=== PATIENT | female | born 1975 | race Caucasian/White ===

== ENCOUNTER 2022-08-10 17:09 | Outpatient (REF) | payer OTHER, SELFPAY ==
--- NOTE | ~2022-08-10 | XR_ITS ---
EXAMINATION: XR FOOT, RIGHT CLINICAL INFORMATION: Pain COMPARISON: None available. TECHNIQUE: AP, lateral, and oblique views of the right foot. FINDINGS: Bone alignment is normal. No fracture or dislocation. Mild arthritis at the first MTP joint with small osteophytes. Joint spaces are otherwise normal. Small calcaneal spur at the Achilles tendon insertion. XR/XR foot RT 2V IMPRESSION: Mild arthritis at the first MTP joint. Small calcaneal spur.
== END 2022-08-10 17:10 | disposition home or self-care (01) ==
LOC: HO.XRAY 17:09
PROVIDERS: Visit Provider Nurse Practitioner Family
DX: M79.671 Pain in right foot (principal)
CPT/HCPCS: 73620

== ENCOUNTER 2023-03-12 09:48 | Outpatient (AMB) | payer OTHER, SELFPAY ==
[2023-03-12 10:01] VITALS: BP 118/62; PULSE 72; O2SAT 99; BMI 23.7
--- NOTE | 2023-03-12 10:01 | MHC.PC.OV ---
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 Allergies No Known Allergies Allergy (Verified 03/12/23 10:10) Tobacco use date assessed: 03/12/23 HPI trans care from [facility] Details Transfer of Care Prior PCP:?SV Acute issue(s): Moderately severe environmental allergies - Fluctuate w/ seasons. Rhinitis & Sinusitis symptoms. Uses Benadryl. Cysts: ?Axilla?and?toe PMHx: Denies SurgHx: , [place] tooth FHx: Mom: [place]otos Thyroid, Macular degen. Dad: Melanoma SocHx: Nonsmoker. EtOH 1-1 glasses wine per week. No drugs. PFSH Surgical History No pertinent past surgical history Family History Father Melanoma Mother No problems noted. 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 Cognitive needs: No Hearing needs: No Vision needs: No Review of Systems Const Denies chills, Denies fatigue, Denies fever(s), Denies headache(s) and Denies weakness ENT Denies dizziness, Denies headache(s) and Reports nasal congestion Card Denies chest pain, Denies lightheadedness, Denies dyspnea and Denies other (Palpitations) Resp Denies cough, Denies dyspnea, Denies wheezing and Denies other ( shortness of breath) Musc Denies numbness and Denies tingling Neuro Denies dizziness, Denies headache(s), Denies numbness, Denies tingling, Denies paresthesias and Denies weakness Psych Denies anxiety and Denies depression Endo Denies fatigue Aller/Immun Denies wheezing Physical exam (Primary Care) Vital Signs: Last Vital Signs Pulse 72 03/12/23 10:01 BP 118/62 03/12/23 10:01 Pulse Ox 99 03/12/23 10:01 Oxygen Delivery Method Room Air 03/12/23 10:01 BMI result Body Mass Index 23.7 Tobacco/Smoking Status: Tobacco use Status Tobacco use date assessed 03/12/23 03/12/23 10:16 Patient Tobacco Use Status Never used Tobacco 03/12/23 10:16 e-Cigarette/Vaping Use Never Used 03/12/23 10:16 Const General: no acute distress and well developed Nutritional Appearance: well nourished Orientation/consciousness: patient oriented x3 HENMT Head: Yes normocephalic and Yes atraumatic Eyes General: appearance normal, both eyes and all related structures Pupils: Equal, round and reactive pupils present EOM: EOMs intact bilaterally Resp Effort & Inspection: normal respiratory effort Auscultation: clear to auscultation bilaterally Cardio Rate: regular rate Rhythm: regular rhythm Heart sounds: S1 normal heart sound present, S2 normal heart sound present, no gallops, no murmurs and no rubs Neuro General: patient oriented x3 and gait normal Cranial nerves: Yes Equal, round and reactive pupils present Psych Affect: normal affect Assessment and Plan Assessment & Plan (1) Environmental allergies: Code(s): Z91.09 - Other allergy status, other than to drugs and biological substances Plan: Discussed?environmental?modifications Will?trial?Flonase?and?she?can?continue?antihistamines Referred?to?immunology?at?patient?request (2) Allergic rhinitis: Code(s): J30.9 - Allergic rhinitis, unspecified Plan: As?above (3) Hidradenitis: Code(s): L73.2 - Hidradenitis suppurativa Plan: Follicular?cysts?under?left?axilla?and?right?toe Likely?hidradenitis Referred?to?surgery (4) Laboratory exam ordered as part of routine general medical examination: Code(s): Z00.00 - Encounter for general adult medical examination without abnormal findings Plan: Check?labs Orders: Referrals Allergy & Immunology Referral J30.9 - Allergic rhinitis, unspecified, Z91.09 - Other allergy status, other than to drugs and biological substances General Surgery Referral L73.2 - Hidradenitis suppurativa Medications: New fluticasone propionate 50 mcg/actuation (Flonase Allergy Relief) administer into each nostril 1 spray intranasal Q12H 30 days 16 grams 2RF Coding Level of Care Code Est Pt Level 3 (40302) Diagnoses Environmental allergies Z91.09 Allergic rhinitis J30.9 Hidradenitis L73.2 Laboratory exam ordered as part of routine general medical examination Z00.00
== END 2023-03-12 11:20 | disposition home or self-care (01) ==
PROVIDERS: PCP Family Medicine; Visit Provider Family Medicine
DX: Z91.09 Other allergy status, other than to drugs and biological substances (principal); J30.9 Allergic rhinitis, unspecified; L73.2 Hidradenitis suppurativa; Z00.00 Encounter for general adult medical examination without abnormal findings
CPT/HCPCS: 99213

== ENCOUNTER 2023-03-24 14:41 | Outpatient (REF) | payer OTHER, SELFPAY | END 2023-03-24 14:42 | disposition home or self-care (01) | LOC: HO.LNP 14:41 | PROVIDERS: PCP Family Medicine; Visit Provider Surgery | DX: L72.0 Epidermal cyst (principal) | CPT/HCPCS: 11402; 88304; 88305; 99202 ==

== ENCOUNTER 2023-03-24 14:41 | Outpatient (AMB) | payer OTHER, SELFPAY ==
[2023-03-24 14:44] VITALS: BMI 48.1
--- NOTE | 2023-03-24 14:44 | MHC.OFFVIS ---
Intake Vital Signs 03/24/23 14:44 Height 5 ft 10 in Weight 335 lb BMI 48.1 Intake Visit Reasons: hidradenitis suppurativa Intake Note: This patient presents for an assessment for hidradenitis suppurativa. Patient c/o; reports no complaints at this time. 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 She had noticed this since he to 4 years ago. She says she did not pay much attention to this because of the pandemic She says that this has been bothering her more and she wants this removed. She denies any drainage. [facility] Medical History (Updated 03/24/23 @ 15:24 by Elias Coombs MD) Epidermal inclusion cyst Surgical History No pertinent past surgical history Family History Father Melanoma Mother No problems noted. 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 Cognitive needs: No Hearing needs: No Vision needs: No Review of Systems Const Denies chills and Denies fever(s) Card Denies chest pain, Denies dyspnea and Denies dyspnea on exertion Resp Denies cough, Denies dyspnea and Denies dyspnea on exertion GI Denies hematochezia and Denies change in bowel habits Denies hematuria Musc Denies back pain and Denies limited range of motion Neuro Denies focal weakness and Denies convulsions Psych Denies depression and Denies mood swings Physical Exam Vital Signs: BMI result Body Mass Index 48.1 Const General: comfortable and no acute distress Orientation/consciousness: patient oriented x3 Neck Neck: Yes no lymphadenopathy Resp Auscultation: clear to auscultation bilaterally Cardio Rhythm: regular rhythm GI Palpation (GI): Soft to palpation, nontender and no guarding Neuro General: patient oriented x3 Extrem Other: Left axilla - well-defined mobile cystic mass, about 2 cm, with punctum on the skin consistent with an epidermal inclusion cyst Office Procedures Excision Details: The area was prepped and draped. Lidocaine 1% was used for local anesthesia. An elliptical incision was made on the skin overlying this cyst using a blade 15. This was carried down through the full-thickness of the skin and subcutaneous fat to excise this entire cyst. This has well-defined. This measured about 2 cm in diameter. I closed the incision with full-thickness nylon 3-0 interrupted sutures. Dressings were applied. The procedure was completed. She tolerated procedure well. There were no immediate complications. She was given wound care instructions. 71204-uqdob/arms/legs 1.1-2cm Procedure code (CPT) selection complete Assessment & Plan Assessment & Plan (1) Epidermal inclusion cyst: Code(s): L72.0 - Epidermal cyst Plan: She has an epidermal inclusion cyst of the left axilla. She wants this removed. I explained the technique of excision under local anesthesia. I explained the risks including but not limited to bleeding, infections, as well as the benefits and alternatives. She gave consent Excision was done in the office. She tolerated procedure well. There were no immediate complications. She can take Tylenol and ibuprofen for pain. She can get the incision wet after 24 hours and she can change her dressing to Band-Aids thereafter. I will see her in the office in about 2 weeks remove the sutures. Coding Level of Care Code New Pt Level 3 (95141) Diagnoses Epidermal inclusion cyst L72.0 CPT Codes Trunk/Arms/Legs - CPT: 25563-cynci/arms/legs 1.1-2cm ([id number])
== END 2023-03-24 15:28 | disposition home or self-care (01) ==
PROVIDERS: PCP Family Medicine; Visit Provider Surgery
DX: L72.0 Epidermal cyst (principal)
CPT/HCPCS: 11402; 99203

== ENCOUNTER 2023-04-07 13:22 | Outpatient (AMB) | payer OTHER, SELFPAY ==
[2023-04-07 13:24] VITALS: BMI 21.7
--- NOTE | 2023-04-07 13:24 | MHC.OFFVIS ---
Intake Vital Signs 04/07/23 13:24 Height 5 ft 10 in Weight 151 lb BMI 21.7 Intake Visit Reasons: S/p Exc hidradenitis suppurativa-in office Intake Note: This patient presents for a post-op follow-up assessment status post in office excision epidermal inclusion cyst left axilla. Pt c/o; reports redness. 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 She tolerated procedure well. She denies significant complaints at this time. [facility] Medical History Epidermal inclusion cyst Surgical History History of excision of epidermal inclusion cyst (~03/24/23) Family History Father Melanoma Mother No problems noted. 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 Cognitive needs: No Hearing needs: No Vision needs: No Review of Systems Const Denies chills and Denies fever(s) Card Denies chest pain, Denies dyspnea and Denies dyspnea on exertion Resp Denies cough, Denies dyspnea and Denies dyspnea on exertion GI Denies hematochezia and Denies change in bowel habits Denies hematuria Musc Denies back pain and Denies limited range of motion Neuro Denies focal weakness and Denies convulsions Psych Denies depression and Denies mood swings Physical Exam Vital Signs: BMI result Body Mass Index 21.7 Const General: comfortable and no acute distress Skin Other: Excision site from the left axilla is well healed, sutures intact, No sign of infection Assessment & Plan Assessment & Plan (1) Epidermal inclusion cyst: Code(s): L72.0 - Epidermal cyst Plan: Status post excision. 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 The incision site is well healed. I removed her sutures. She can follow up on a p.r.n. basis. She understands the benign nature of the pathology. Coding Level of Care Code Global (37135) Diagnoses Epidermal inclusion cyst L72.0
== END 2023-04-07 13:46 | disposition home or self-care (01) ==
PROVIDERS: PCP Family Medicine; Visit Provider Surgery
DX: L72.0 Epidermal cyst (principal)
CPT/HCPCS: 99024

== ENCOUNTER → 2023-04-07 13:22 | Outpatient (BNVA) | payer OTHER, SELFPAY | PROVIDERS: PCP Family Medicine; Visit Provider Surgery | DX: Z09 Encounter for follow-up examination after completed treatment for conditions other than malignant neoplasm (principal); Z87.2 Personal history of diseases of the skin and subcutaneous tissue | CPT/HCPCS: 99212 ==

== ENCOUNTER 2023-04-16 15:21 | Outpatient (REF) | payer OTHER, SELFPAY ==
--- NOTE | ~2023-04-16 | MM_ITS ---
EXAMINATION: MM SCREENING DIGITAL BREAST TOMOSYNTHESIS, BILATERAL CLINICAL INFORMATION: Screening. Asymptomatic. COMPARISON: Mammography: This study is compared with prior mammogram dating back to 2019. TECHNIQUE: Digital breast tomosynthesis is performed in both the craniocaudal and mediolateral oblique views along with computer-aided detection (CAD). Synthesized 2D images are generated from the tomosynthesis. FINDINGS: The breasts are heterogeneously dense, which may obscure small masses (ACR BI-RADS breast composition Category c). There are no significant masses, abnormal calcifications, or other abnormalities. MM/MM tomosynthesis screening BI IMPRESSION: No mammographic evidence of malignancy. ASSESSMENT: BI-RADS BI-RADS 1 - Negative RECOMMENDATION: Routine annual mammography screening. 1 year F/U This examination should not preclude the clinical evaluation of a suspicious palpable abnormality. This patient's information was entered into a reminder system with a target due date for their next mammogram.
== END 2023-04-16 15:22 | disposition home or self-care (01) ==
LOC: HO.MAMMO 15:21
PROVIDERS: Visit Provider Family Medicine
DX: Z12.31 Encounter for screening mammogram for malignant neoplasm of breast (principal)
CPT/HCPCS: 77063; 77067

== ENCOUNTER → 2023-04-16 15:45 | Outpatient (BNV) | payer OTHER, SELFPAY | PROVIDERS: Visit Provider Radiology Diagnostic Radiology | DX: Z12.31 Encounter for screening mammogram for malignant neoplasm of breast (principal) | CPT/HCPCS: 77063; 77067 ==

== ENCOUNTER 2023-07-21 08:39 | Outpatient (AMB) | payer OTHER, SELFPAY ==
--- NOTE | 2023-07-21 08:55 | A.OFFPC_ITS ---
Vital Signs 07/21/23 08:58 Height 5 ft 10 in Weight 170 lb 4 oz BMI 24.4 BP 120/66 Blood Pressure Location Lt brachial Position Sitting Pulse 80 Pulse Source Pulse Oximeter Pulse Oximetry (%) 99 Oxygen Delivery Method Room Air Intake Visit Reasons: Extended exam with f/u labs and health maint. Intake Note: Patient is here for a physical, and had her labs drawn this morning. Allergies No Known Allergies Allergy (Verified 07/21/23 08:59) Medication List - Last Reconciled 07/21/23 by Chepe Hart MD fluticasone propionate 50 mcg/actuation (Flonase Allergy Relief) 1 spray intranasal Q12H 30 days Tobacco use date assessed: 03/12/23 Dental Screening Dental Screen Date: 07/21/23 Did you have a dental visit in the last 12 months?: No Did you have a dental problem in the last 6 months where you did not have access to dental care?: No Was dental information given to patient?: Patient has dentist HPI Extended exam with f/u labs and health maint. HPI Details 47 y/o female presents for an extended e xam with f/u labs and health maintenance. No recent labs to review. Pt notes last mammogram was normal. HPI Comments History of Present Illness Details Documentation assistance for Chepe Hart MD, was provided by Jeremy Mack, Clinical Liaison on 07/21/2023 9:48 AM JOE. Rachel, Dr. Hart, have read, observed, and verified documentation. [facility] Medical History Epidermal inclusion cyst Surgical History History of excision of epidermal inclusion cyst (~03/24/23) Family History Father Melanoma Mother No problems noted. 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 1. Little interest or pleasure in doing things: not at all 2. Feeling down, depressed, or hopeless: not at all 3. Trouble falling or staying asleep, or sleeping too much: not at all 4. Feeling tired or having little energy: not at all 5. Poor appetite or overeating: not at all 6. Feeling bad about yourself - or that you are a failure or have let yourself or your family down: not at all 7. Trouble concentrating on things, such as reading the newspaper or watching television: not at all 8. Moving or speaking so slowly that other people could have noticed. Or the opposite - being so fidgety or restless that you have been moving around a lot more than usual: not at all 9. Thoughts that you would be better off or of hurting yourself in some way: not at all Total score: 0 Depression Screening Interpretation: Negative Depression Screening Done: Yes Source: Developed by Drs. Stuart Kilgore, Gloria Solo, Placido Alvarado and colleagues, with an educational herve from [employer]. Thrive Questionnaire Date Thrive assessed: 07/21/23 I am a: Patient What is your living situation today?: I have a steady place to live Within the past 12 months, did the food you bought not last and you didn't have the money to get more?: Never true Within the past 12 months, did you worry whether your food would run out before you got money to buy more?: Never true Do you have trouble paying for medicines?: No Do you have trouble getting transportation to medical appointments?: No Do you have trouble paying your heating and electricity bill?: No Do you have trouble taking care of your child, family member or friend?: No Do you have trouble with day-to-day activities such as bathing, preparing meals, shopping, managing finances, etc.?: No Are you currently unemployed and looking for a job?: No Are you interested in more education?: No THRIVE Score: 0 AUDIT C Alcohol Use Questionnaire (AUDIT-C) 1. How often do you have a drink containing alcohol?: 2-3 times a week 2. How many drinks containing alcohol do you have on a typical day when you are drinking?: 1 or 2 3. How often do you have six or more drinks on one occasion?: Never Total Score: 3 CORKY-7 AMB Questionnaire CORKY-7 Date CORKY - 7 assessed: 07/21/23 Feeling nervous, anxious, or on edge: 3 = Nearly every day Not being able to stop or control worryin = Nearly every day Worrying too much about different things: 3 = Nearly every day Trouble relaxin = Nearly every day Being so restless that it is hard to sit still: 3 = Nearly every day Becoming easily annoyed or irritable: 3 = Nearly every day Feeling afraid as if something awful might happen: 3 = Nearly every day Total CORKY-7 score (0-4 normal; 5-9 mild; 10-14 moderate; 15-21 severe): 21 Source: Developed by Drs. Stuart Kilgore, Gloria Solo, Placido Alvarado and colleagues, with an educational herve from [employer]. Review of Systems Const Denies chills, Denies fatigue, Denies fever(s), Denies headache(s) and Denies weakness Eyes Denies change in vision ENT Denies dizziness, Denies headache(s), Denies hearing loss, Denies nasal congestion, Denies sinus pain, Denies sinus pressure and Denies sore throat Card Denies chest pain, Denies lightheadedness, Denies dyspnea and Denies other (palpitations) Resp Denies cough, Denies dyspnea and Denies wheezing GI Denies abdominal pain, Denies melena, Denies hematochezia, Denies change in bowel habits, Denies dyspepsia and Denies nausea Denies hematuria and Denies dysuria Musc Denies abnormal gait, Denies myalgias, Denies arthralgias, Denies numbness and Denies tingling Skin/Breast Denies rash, Denies unusual bruising and Denies wounds Neuro Denies abnormal gait, Denies dizziness, Denies headache(s), Denies memory loss, Denies numbness, Denies Sensory deficit (Neuro), Denies tingling and Denies weakness Psych Denies anxiety, Denies depression and Denies memory loss Endo Denies cold intolerance, Denies fatigue, Denies heat intolerance, Denies polydipsia and Denies polyuria Andreas/Lymph Denies easy bleeding and Denies easy bruising Aller/Immun Denies wheezing Physical exam (Primary Care) Vital Signs: Last Vital Signs Pulse 80 07/21/23 08:58 BP 120/66 07/21/23 08:58 Pulse Ox 99 07/21/23 08:58 Oxygen Delivery Method Room Air 07/21/23 08:58 BMI result Body Mass Index 24.4 Tobacco/Smoking Status: Tobacco use Status Tobacco use date assessed 03/12/23 07/21/23 08:57 Patient Tobacco Use Status Never used Tobacco 07/21/23 08:57 e-Cigarette/Vaping Use Never Used 07/21/23 08:57 PHQ-9: PHQ-9 Score PHQ-9: Total score 0 07/21/23 09:06 Depression Screening Interpretation: Negative Thrive Assessment: Date of Thrive Assessment Date Thrive assessed 07/21/23 07/21/23 09:06 Const General: no acute distress, well developed, alert and awake Nutritional Appearance: well nourished Orientation/consciousness: patient oriented x3 HENMT Head: Yes normocephalic and Yes atraumatic Ears: hearing grossly normal bilaterally and TM's normal bilaterally General nose exam: Normal external nose present and Normal nares present Mouth: Normal oral and palatal mucosa present and moist mucous membranes Teeth and gingiva: dentition normal Throat: Yes posterior oropharynx normal Eyes General: appearance normal, both eyes and all related structures Pupils: Equal, round and reactive pupils present and Pupil accommodation reflex normal EOM: EOMs intact bilaterally Neck Neck: Yes normal visual inspection, Yes no lymphadenopathy and Yes trachea midline Thyroid: Thyroid normal Carotids: no bruits Lymphatic: no lymphadenopathy noted Chest Chest palpation & inspection: normal inspection of the chest Resp Effort & Inspection: normal respiratory effort Auscultation: clear to auscultation bilaterally Cardio Rate: regular rate Rhythm: regular rhythm Heart sounds: S1 normal heart sound present, S2 normal heart sound present, no gallops, no murmurs and no rubs Bruits: no abdominal aortic bruits and no carotid bruits GI Palpation (GI): No Abdominal aortic bruit present, Soft to palpation, nontender, No hepatosplenomegaly present and No Rebound tenderness present Auscultation: normal bowel sounds General: Yes no CVA tenderness Back/Spine/Pelvis Back: no CVA tenderness Cervical Spine: cervical ROM normal and No Cervical spine tenderness Thoracic/Lumbar Spine: thoraco-lumbar ROM normal, No pain with thoraco-lumbar ROM, No thoracic spinal tenderness and No lumbar spinal tenderness Skin Other: 0.5cm rounded neoplasm between her eyebrows on the bridge of her nose Lesions: no lesions Rashes: no rashes Trauma: no lacerations or abrasions Wounds: no wounds Nails: normal Neuro General: patient oriented x3 Cranial nerves: Yes Equal, round and reactive pupils present Cognition (Neuro): normal cognition Gait exam (Neuro): Normal gait present Motor exam (neuro): 5/5 motor strength present throughout Sensory Exam: No Sensory deficit (Neuro) Deep tendon reflexes (DTR's): Right patellar reflex intensity grade: 2+ and Left patellar reflex intensity grade: 2+ Extrem Other: Cyst on R third toe which looks fluctuant General: Yes normal to inspection and No edema Psych Appearance: grossly normal Affect: normal affect Attitude: cooperative Thought process: Normal thought process present Assessment and Plan Assessment & Plan (1) Neoplasm of uncertain behavior of skin: Code(s): D48.5 - Neoplasm of uncertain behavior of skin Plan: Rounded?neoplasm?at?superior?aspect?of?the?bridge?of?her?nose Referred?to?dermatology (2) Cyst of skin: Code(s): L72.9 - Follicular cyst of the skin and subcutaneous tissue, unspecified Plan: Cyst?or?blister?on?right?3rd?toe?which?gets?irritated?when?she?runs. Appears?fluctuant?and?we?will?try?Sarita?this Advised?mole?skin?or??Donnie's?bandages?until?then. If?not?improving?will?refer?to?Podiatry (3) Breast cancer screening by mammogram: Code(s): Z12.31 - Encounter for screening mammogram for malignant neoplasm of breast Plan: Recent?mammogram?in?April?showed?no?evidence?of?malignancies?and?recommended? annual?screening Up-to-date (4) Screening for cervical cancer: Code(s): Z12.4 - Encounter for screening for malignant neoplasm of cervix Plan: Patient?says?she?had?her?last?Pap?smear?about?2?years?ago?with?[facility]?an d?that?this?was?normal. Will?discuss?with?her?again?next?year;?she?says?she?would?like?a?referral?to?[facility] Will?discuss?again?next?year.??She?is?up-to-date. (5) Adult general medical exam: Code(s): Z00.00 - Encounter for general adult medical examination without abnormal findings Plan: 47-year-old?female?presents?for?complete?physical?exam Encouraged?healthy?diet?with?active?lifestyle?and?plenty?of?exercise Orders: Referrals Dermatology Referral D48.5 - Neoplasm of uncertain behavior of skin Coding Level of Care Code Est Pt Level 4 (98562) Diagnoses Neoplasm of uncertain behavior of skin D48.5 Cyst of skin L72.9 Breast cancer screening by mammogram Z12.31 Screening for cervical cancer Z12.4 Adult general medical exam Z00.00
[2023-07-21 08:58] VITALS: BP 120/66; PULSE 80; O2SAT 99; BMI 24.4
== END 2023-07-21 10:01 | disposition home or self-care (01) ==
PROVIDERS: PCP Family Medicine; Visit Provider Family Medicine
DX: Z00.00 Encounter for general adult medical examination without abnormal findings (principal); D48.5 Neoplasm of uncertain behavior of skin; L72.9 Follicular cyst of the skin and subcutaneous tissue, unspecified; Z12.31 Encounter for screening mammogram for malignant neoplasm of breast
CPT/HCPCS: 99396

== ENCOUNTER 2023-07-21 08:47 | Outpatient (REF) | payer OTHER, SELFPAY ==
[2023-07-21 11:39] LABS: Appearance Urine Clear; Color Urine Yellow; Glucose Urine UA Negative (Negative); Leukocyte Esterase Urine Negative (Negative); Nitrite Urine Negative (Negative); Specific Gravity - Urine <= 1.005 (1.005-1.025); Urine Blood Negative (Negative); Urine Ketones Negative (Negative); Urine Protein Negative (Neg-Trace)
[2023-07-21 12:02] LABS: Alanine Aminotransferase 10 U/L (0-31); Albumin Level 4.3 g/dL (3.5-5.0); Alkaline Phosphatase 48 U/L (39-117); Anion Gap 10 (12-20); Aspartate Amino Transferase 15 U/L (5-31); Bilirubin Total 0.4 mg/dL (0.0-1.0); Blood Urea Nitrogen 13 mg/dL (9-16); Calcium 9.6 mg/dL (8.4-10.2); Carbon Dioxide 27 mmol/L (22-29); Chloride 104 mmol/L (96-108); Cholesterol 240 mg/dL (<200); Estimated Glomerular Filt Rate > 60; Glucose Fasting 91 mg/dL (60-99); HDL Cholesterol 73 mg/dL (>40); LDL Cholesterol Calculated 151 mg/dL (<100); Potassium 4.3 mmol/L (3.3-5.1); Sodium 137 mmol/L (135-145); Total Protein 7.1 g/dL (6.5-8.0); Triglycerides 81 mg/dL (<150)
[2023-07-21 12:17] LABS: Creatinine Urine 24.35 mg/dL; Microalbumin Urine < 5.0 mg/L
[2023-07-21 12:24] LABS: TSH reflex Free T4 1.23 uIU/mL (0.32-4.0)
== END 2023-07-21 08:48 | disposition home or self-care (01) ==
LOC: HO.WFDLDS 08:47
PROVIDERS: Visit Provider Family Medicine
DX: Z00.00 Encounter for general adult medical examination without abnormal findings (principal); I10 Essential (primary) hypertension
CPT/HCPCS: 36415; 80053; 80061; 81003; 82043; 82570; 84443

== ENCOUNTER 2024-06-22 12:30 | Outpatient (REF) | payer OTHER, SELFPAY | END 2024-06-22 12:31 | disposition home or self-care (01) | LOC: HO.MAMMO 12:30 | PROVIDERS: PCP Family Medicine; Visit Provider Family Medicine | DX: Z12.31 Encounter for screening mammogram for malignant neoplasm of breast (principal) | CPT/HCPCS: 77063; 77067 ==

== ENCOUNTER → 2024-06-22 12:30 | Outpatient (BNV) | payer OTHER, SELFPAY | PROVIDERS: PCP Family Medicine; Visit Provider Internal Medicine | DX: Z12.31 Encounter for screening mammogram for malignant neoplasm of breast (principal) | CPT/HCPCS: 77063; 77067 ==

== ENCOUNTER 2024-11-13 15:06 | Outpatient (AMB) | payer OTHER, SELFPAY ==
--- NOTE | 2024-11-13 15:10 | A.OFFPC_ITS ---
Vital Signs 3 11/13/24 15:14 11/13/24 15:40 Height 5 ft 10 in Weight 166 lb 6 oz BMI 23.9 BP 136/72 Blood Pressure Location Rt brachial Position Sitting Respiration 13 Pulse 103 H 90 Pulse Source Pulse Oximeter Auscultation Temp 97.2 F Temp Source Oral Pulse Oximetry (%) 98 Oxygen Delivery Method Room Air Intake Visit Reasons: Physical Dr. Minda Jain Intake Note: CPE. [place] Required: No Allergies No Known Allergies Allergy (Verified 11/13/24 15:11) Tobacco use date assessed: 11/13/24 Dental Screening Dental Screen Date: 11/13/24 Did you have a dental visit in the last 12 months?: Yes Did you have a dental problem in the last 6 months where you did not have access to dental care?: No Was dental information given to patient?: Patient has dentist HPI HPI Comments 2 History of Present Illness0 Details 49 y/o F with fhx melanoma (dad), HLD, a llergic rhinitis Health Maintenance Mammo 06/2024 Tdap will admin today Colon cologaurd ordered, has never had colonoscopy Pap 2021 [facility] 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 - Hyperlipidemia with previously elevate d cholesterol levels noted. - Managed allergic rhinitis using Flonas e and Claritin as needed. - Needs updated Derm referral for mole e xamination due to family history of melanoma. Was not able to attend last appt [facility]. - Interested in hormone replacement ther apy for perimenopause symptoms; no prior treatment. - Reports recurring inflammatory and dis charging cyst on the toe, middle, R foot. - Chose Cologuard for colon cancer scree jace; has never had a colonoscopy. - Underwent mammogram in June. - No recent surgeries; episodic right le g swelling occasional noted. Family History - Father with a history of melanoma Social History - Patient has 4 children. - Reports lifestyle changes with stresso rs influencing current health due to previous healthcare coordination and treatment gaps. Review of Systems - Skin: Reports concerns about mole and recurring toe cyst. - Reproductive: Denies having a Pap or p erimenopausal management recently. - Musculoskeletal: Reports a history of leg swelling with occasional indentation. - Cardiovascular: Denies recent cardiova scular events but reports past elevated cholesterol. - Respiratory: Denies unusual respirator y symptoms beyond chronic allergic rhinitis. Physical Exam: examined in seated position, here w/ Son Franky, whom she held during the exam for comfort. General: Well developed, well nourished, in no acute distress. Appears stated age. Head: Normocephalic, atraumatic. Eyes: Pupils are equal, round and reactive to light and accommodation. Conjunctivae are clear. Vision grossly normal. Ears: TMs clear AU, EACS WNL Nose: Patent, without discharge. Patient has allergic rhinitis and uses Flonase or Claritin as needed. Neck: Supple, no adenopathy or thyromegaly. No pain or tenderness noted. Breast: Edu on SBE Lungs: Clear to auscultation bilaterally. No rales, rhonchi or wheeze noted. Good air flow in all garcia. Heart: Regular rate and rhythm. No murmurs, click, rubs or gallops are noted. Heart rate was a little bit elevated upon arrival. : Deferred. 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 Pulses: Peripheral pulses are equal and palpable bilaterally. Extremities: No clubbing, cyanosis nor edema is noted. Neurologic: Gait and station normal. Cranial Nerves 2-12 intact. Motor strength grossly symmetrical and intact. No sensory loss. Balance normal. Skin: No rashes, ulcers, or lesions noted. Turgor is good. Skin color is good. Hair and nails are without abnormalities. Skin lesion bridge of nose, L cheek. Psych: Normal eye contact, affect and mood appropriate, and normal interactions. Patient is alert and appropriate to context. right middle toe: Results - Labs: Past records show elevated jana sterol. Declined repeat. - Tests: Mammogram done in June. Discussion Notes During the visit, I addressed the patient's concerns, which included evaluating the recurrent cyst on the toe with potential dermatologic or surgical intervention. I discussed hormone replacement therapy while acknowledging her previous encounter with reluctance to prescribe it; therefore, a referral for comprehensive CONFIGURATION ENGINEER evaluation was provided. The prospect of skin surveillance was confirmed, considering her family history of melanoma. Preventive health discussions included the importance of updating the tetanus vaccine and proceeding with a Cologuard test for colorectal screening. I explained the general surgery referral process for her cyst concerns and effective symptom management strategies through lifestyle and possible medical treatment advancements. Patient was given time to ask questions. All questions were answered to their satisfaction. Assessment and Plan 1. Hyperlipidemia - Monitor cholesterol levels. Declined repeat labs today 2. Allergic Rhinitis - Continue Flonase, Claritin. 3. Cyst on Toe, R middle - Evaluate by general surgery. 4. Perimenopausal Symptoms - Refer for hormone therapy evaluation. 5. Dermatologic Concerns - Prioritize mole check with dermatology . Patient Instructions - Follow up with general surgery regardi ng the cyst. - Schedule CONFIGURATION ENGINEER visit for hormone ther apy advice. - Await dermatology referral. - Complete Cologuard test at home. - Seek tetanus vaccine update as soon as possible. - RTO 1 year CPE sooner as needed. Consent Patient was informed and verbally consented to the use of an ambient scribe for clinic note documentation during this visit. An additional 10 minutes was spent addressing the problem(s) noted at todays visit. This includes time spent before the visit reviewing the chart, time spent during the visit, and time spent after the visit on documentation reviewing laboratory results, diagnostic imaging, medications, performing a medically necessary evaluation, counseling on diagnoses, care coordination, ordering appropriate tests, ordering appropriate medications, review of tests performed by other providers, reporting test results with the patient, communication with other healthcare providers. [facility] Medical History Epidermal inclusion cyst Surgical History History of excision of epidermal inclusion cyst (~03/24/23) Family History Father Melanoma Mother No problems noted. Brother In good health Brother In good health Son In good health Daughter In good health Family/Other Alcoholism Depression Social History Housing: House Patient Tobacco Use Status: Never used Tobacco e-Cigarette/Vaping Use: Never Used service: No Current occupational status: employed Current occupation: [employer] Cognitive needs: No Hearing needs: No Vision needs: No Questionnaire PHQ-9 Over the last 2 weeks, how often have you been bothered by any of the following problems? 1. Little interest or pleasure in doing things: not at all 2. Feeling down, depressed, or hopeless: not at all 3. Trouble falling or staying asleep, or sleeping too much: not at all 4. Feeling tired or having little energy: not at all 5. Poor appetite or overeating: not at all 6. Feeling bad about yourself - or that you are a failure or have let yourself or your family down: not at all 7. Trouble concentrating on things, such as reading the newspaper or watching television: not at all 8. Moving or speaking so slowly that other people could have noticed. Or the opposite - being so fidgety or restless that you have been moving around a lot more than usual: not at all 9. Thoughts that you would be better off or of hurting yourself in some way: not at all Total score: 0 Depression Screening Interpretation: Negative Depression Screening Done: Yes 93048 - PHQ-9 Billing: Yes Source: Developed by Drs. Stuart Kilgore, Gloria Solo, Placido Alvarado and colleagues, with an educational herve from [employer]. Thrive Questionnaire Date Thrive assessed: 11/13/24 I am a: Patient What is your living situation today?: I have a steady place to live Within the past 12 months, did the food you bought not last and you didn't have the money to get more?: Never true Within the past 12 months, did you worry whether your food would run out before you got money to buy more?: Never true Do you have trouble paying for medicines?: No Do you have trouble getting transportation to medical appointments?: No Do you have trouble paying your heating and electricity bill?: No Do you have trouble taking care of your child, family member or friend?: No Are you currently unemployed and looking for a job?: No Are you interested in more education?: No Please select the resources that you would like help with: None Currently or been in a relationship where the following occur: No concerns reported THRIVE Score: 0 AUDIT C Alcohol Use Questionnaire (AUDIT-C) 1. How often do you have a drink containing alcohol?: Never 2. How many drinks containing alcohol do you have on a typical day when you are drinking?: 1 or 2 3. How often do you have six or more drinks on one occasion?: Never Total Score: 0 Score Reviewed/Action Taken: Yes CORKY-7 AMB Questionnaire CORKY-7 Date CORKY - 7 assessed: 11/13/24 Feeling nervous, anxious, or on edge: 0 = Not at all Not being able to stop or control worryin = Not at all Worrying too much about different things: 0 = Not at all Trouble relaxin = Not at all Being so restless that it is hard to sit still: 0 = Not at all Becoming easily annoyed or irritable: 0 = Not at all Feeling afraid as if something awful might happen: 0 = Not at all Total CORKY-7 score (0-4 normal; 5-9 mild; 10-14 moderate; 15-21 severe): 0 Source: Developed by Drs. Stuart Kilgore, Gloria Solo, Placido Alvarado and colleagues, with an educational herve from [employer]. CORKY-7 Assessment Billing CORKY-7 Assessment Tool: CORKY-7 Assessment 70671 Physical exam (Primary Care) Vital Signs: Last Vital Signs Temp 97.2 F 11/13/24 15:14 Pulse 103 H 11/13/24 15:14 Resp 13 11/13/24 15:14 BP 136/72 11/13/24 15:14 Pulse Ox 98 11/13/24 15:14 Oxygen Delivery Method Room Air 11/13/24 15:14 BMI result Body Mass Index 23.9 Tobacco/Smoking Status: Tobacco use Status Tobacco use date assessed 11/13/24 11/13/24 15:13 Patient Tobacco Use Status Never used Tobacco 11/13/24 15:13 e-Cigarette/Vaping Use Never Used 11/13/24 15:13 PHQ-9: PHQ-9 Score PHQ-9: Total score 0 11/13/24 15:13 Depression Screening Interpretation: Negative Thrive Assessment: Date of Thrive Assessment Date Thrive assessed 11/13/24 11/13/24 15:13 Currently or been in a relationship where the following occur: No concerns reported Coding Level of Care Code Est Pt Level 2 (29686) Est Pt Prev Care 40-64y(40577) Diagnoses Adult general medical exam Z00.00 Environmental allergies Z91.09 Screening for colon cancer Z12.11 Screening for cervical cancer Z12.4 Breast cancer screening by mammogram Z12.31 Laboratory exam ordered as part of routine general medical examination Z00.00 Neoplasm of uncertain behavior of skin D48.5 Family history of melanoma Z80.8 Perimenopause N95.1 Cyst of skin L72.9 Need for Tdap vaccination Z23 Additional Codes CORKY-7 Assessment Billing - CORKY-7 Assessment Tool: CORKY-7 Assessment 61990 ([id number]) PHQ-9 - 39398 - PHQ-9 Billing: Yes ([id number]) Assessment & Plan Assessment & Plan (1) Adult general medical exam: Onset Date: ~11/13/24 Code(s): Z00.00 - Encounter for general adult medical examination without abnormal findings Category: Medical (2) Environmental allergies: Code(s): Z91.09 - Other allergy status, other than to drugs and biological substances Category: Medical (3) Screening for colon cancer: Code(s): Z12.11 - Encounter for screening for malignant neoplasm of colon Category: Medical (4) Screening for cervical cancer: Code(s): Z12.4 - Encounter for screening for malignant neoplasm of cervix Category: Medical (5) Breast cancer screening by mammogram: Code(s): Z12.31 - Encounter for screening mammogram for malignant neoplasm of breast Category: Medical (6) Laboratory exam ordered as part of routine general medical examination: Code(s): Z00.00 - Encounter for general adult medical examination without abnormal findings Category: Medical (7) Neoplasm of uncertain behavior of skin: Code(s): D48.5 - Neoplasm of uncertain behavior of skin Category: Medical (8) Family history of melanoma: Code(s): Z80.8 - Family history of malignant neoplasm of other organs or systems Category: Medical (9) Perimenopause: Code(s): N95.1 - Menopausal and female climacteric states Category: Medical (10) Cyst of skin: Code(s): L72.9 - Follicular cyst of the skin and subcutaneous tissue, unspecified Category: Medical (11) Need for Tdap vaccination: Code(s): Z23 - Encounter for immunization Category: Medical Plan . Orders: Orders 2 TDaP Immunization Today Z23 - Encounter for immunization Referrals 2 Dermatology Referral D48.5 - Neoplasm of uncertain behavior of skin, Z80.8 - Family history of malignant neoplasm of other organs or systems Dermatology Referral D48.5 - Neoplasm of uncertain behavior of skin, Z80.8 - Family history of malignant neoplasm of other organs or systems CONFIGURATION ENGINEER Referral N95.1 - Menopausal and female climacteric states, Z12.4 - Encounter for screening for malignant neoplasm of cervix Cologuard Test Z12.11 - Encounter for screening for malignant neoplasm of colon General Surgery Referral L72.9 - Follicular cyst of the skin and subcutaneous tissue, unspecified Medications: New 2 Boostrix Tdap (diphth,pertus(acell),tetanus) 0.5 mL IM ONCE 0.5 mL 0RF NS Z23 - Encounter for immunization Patient Instructions: Health screenings for women You should visit your health care provider from time to time, even if you are healthy. The purpose of these visits is to: Screen for medical issues Assess your risk for future medical problems Encourage a healthy lifestyle Update vaccinations and other preventive care services Help you get to know your provider in case of an illness Information Even if you feel fine, you should still see your provider for regular checkups. These visits can help you avoid problems in the future. For example, the only way to find out if you have high blood pressure is to have it checked regularly. High blood sugar and high cholesterol levels also may not have any symptoms in the early stages. A simple blood test can check for these conditions. There are specific times when you should see your provider or receive specific health screenings. The [place] Preventive Services Task Force publishes a list of recommended screenings. Below are screening guidelines for women ages 18 to 39. BLOOD PRESSURE SCREENING Your blood pressure should be checked at least once every 3 to 5 years if: Your blood pressure is in the normal range (top number less than 120 mm Hg and bottom number less than 80 mm Hg) You don't have risk factors for high blood pressure Ask your provider if you need your blood pressure checked more often if: The top number is 120 to 129 mm Hg or the bottom number is 70 to 79 mm Hg You have diabetes, heart disease, kidney problems, are overweight, or have certain other health conditions You have a first-degree relative with high blood pressure You are Black You had high blood pressure during a If the top number is 130 mm Hg or greater or the bottom number is 80 mm Hg or greater, this is considered stage 1 hypertension. Schedule an appointment with your provider to learn how you can reduce your blood pressure. Watch for blood pressure screenings in your area. Ask your provider if you can stop in to have your blood pressure checked. BREAST CANCER SCREENING Experts do not agree about the benefits of breast self-exams in finding breast cancer or saving lives. Talk to your provider about what is best for you. A screening mammogram is not recommended for most women under age 40. Your provider may discuss and recommend mammograms, MRI scans, or ultrasounds if you have an increased risk for breast cancer, such as: A mother or sister who had breast cancer at a young age (most often starting screening earlier than the age the close relative was diagnosed) You carry a high-risk genetic marker CERVICAL CANCER SCREENING Cervical cancer screening should start at age 21 years unless your provider advises otherwise. After the first test: Women ages 21 through 29 should have a Pap test every 3 years. Exoprts do not agree on whether HPV testing is recommended for this age group. Women ages 30 through 65 should be screened with either a Pap test every 3 years or the HPV test every 5 years or both tests every 5 years (called cotesting ). Women who have been treated for precancer (cervical dysplasia) should continue to have Pap tests for 20 years after treatment or until age 65, whichever is longer. If you have had your uterus and cervix removed (total hysterectomy), and you have not been diagnosed with cervical cancer or precancer (high grade cervical neoplasia), you do not need cervical cancer screening. CHOLESTEROL SCREENING Cholesterol screening should begin at: Age 45 for women with no known risk factors for coronary heart disease Age 20 for women with known risk factors for coronary heart disease Repeat cholesterol screening should take place: Every 5 years for women with normal cholesterol levels More often if changes occur in lifestyle (including weight gain and diet) More often if you have diabetes, heart disease, kidney problems, or certain other conditions DIABETES SCREENING You should be screened for diabetes starting at age 35 and then repeated every 3 years if you have no risk factors for diabetes. Screening may need to start earlier and be repeated more often if you have other risk factors for diabetes, such as: You have a first degree relative with diabetes. You are overweight or have obesity. You have high blood pressure, prediabetes, or a history of heart disease. Screening for diabetes should be done if you are planning to become and you are overweight and have other risk factors such as high blood pressure. DENTAL EXAM Go to the dentist once or twice every year for an exam and cleaning. Your dentist will evaluate if you need more frequent visits. EYE EXAM Have an eye exam every 5 to 10 years before age 40. If you have vision problems, have an eye exam every 2 years or more often if recommended by your provider. You should have an eye exam that includes an examination of your retina (back of your eye) at least every year if you have diabetes. IMMUNIZATIONS Commonly needed vaccines include: Flu shot: get one every year. COVID-19 vaccine: ask your provider what is best for you. Tetanus-diphtheria and acellular pertussis (Tdap) vaccine: have one at or after age 19 as one of your tetanus-diphtheria vaccines if you did not receive it as an adolescent. Tetanus-diphtheria: have a booster (or Tdap) every 10 years. Varicella vaccine: receive 2 doses if you never had chickenpox or the varicella vaccine. Hepatitis B vaccine: receive 2, 3, or 4 doses, depending on your exact circumstances. Measles, mumps, and rubella (MMR) vaccine: receive 1 to 2 doses if you are not already immune to MMR. Your provider can tell you if you are immune. Ask your provider about the human papillomavirus (HPV) vaccine if: You have not received the HPV vaccine in the past You have not completed the full vaccine series (you should catch up on this shot) Ask your provider if you should receive other immunizations if you have certain health problems that increase your risk for some diseases such as pneumonia. INFECTIOUS DISEASE SCREENING Women who are sexually active should be screened for chlamydia and gonorrhea up until age 25. Women 25 years and older should be screened for chlamydia and gonorrhea if at high risk. Screening for hepatitis C: All adults ages 18 to 79 should get a one-time test for hepatitis C. people should be screened at every . Screening for human immunodeficiency virus (HIV): All people ages 15 to 65 should get a one-time test for HIV. Depending on your lifestyle and medical history, you may also need to be screened for infections such as syphilis and HIV, as well as other infections. PHYSICAL EXAM All adults should visit their provider from time to time, even if they are healthy. The purpose of these visits is to: Screen for disease Assess your risk of future medical problems Encourage a healthy lifestyle Update your vaccinations and other preventive care services Maintain a relationship with a provider in case of an illness Your height, weight, and BMI should be checked at every exam. During your exam, your provider may ask you about: Depression and anxiety Diet and exercise Alcohol and tobacco use Safety issues, such as using seat belts, smoke detectors, and intimate partner violence Your medicines and risk for interactions SKIN SELF-EXAM Your provider may check your skin for signs of skin cancer, especially if you're at high risk, such as if you: Have had skin cancer before Have close relatives with skin cancer Have a weakened immune system OTHER SCREENING Talk with your provider about colon cancer screening if you have a strong family history of colon cancer or polyps, or if you have had inflammatory bowel disease or polyps yourself. Routine bone density screening of women under 40 is not recommended.
[2024-11-13 15:14] VITALS: BP 136/72; PULSE 103; RESP 13; TEMP 36.2; O2SAT 98; BMI 23.9
[2024-11-13 15:40] VITALS: PULSE 90
== END 2024-11-13 15:48 | disposition home or self-care (01) ==
LOC: HO.HMCFM 15:07
PROVIDERS: PCP Family Medicine; Visit Provider Nurse Practitioner Family
DX: Z00.00 Encounter for general adult medical examination without abnormal findings (principal); D48.5 Neoplasm of uncertain behavior of skin; N95.1 Menopausal and female climacteric states; L72.9 Follicular cyst of the skin and subcutaneous tissue, unspecified; Z91.09 Other allergy status, other than to drugs and biological substances; Z12.11 Encounter for screening for malignant neoplasm of colon; Z12.31 Encounter for screening mammogram for malignant neoplasm of breast; Z80.8 Family history of malignant neoplasm of other organs or systems; Z23 Encounter for immunization

== ENCOUNTER → 2024-11-13 15:06 | Outpatient (BNVA) | payer OTHER, SELFPAY | PROVIDERS: PCP Family Medicine; Visit Provider Nurse Practitioner Family | DX: Z00.00 Encounter for general adult medical examination without abnormal findings (principal); E78.5 Hyperlipidemia, unspecified; J30.9 Allergic rhinitis, unspecified; D48.5 Neoplasm of uncertain behavior of skin; N95.1 Menopausal and female climacteric states; L72.8 Other follicular cysts of the skin and subcutaneous tissue; Z23 Encounter for immunization; Z91.09 Other allergy status, other than to drugs and biological substances; Z80.8 Family history of malignant neoplasm of other organs or systems | CPT/HCPCS: 90471; 90715; 96127; 99212; 99396 ==

== ENCOUNTER 2024-12-13 08:57 | Outpatient (AMB) | payer OTHER, SELFPAY ==
[2024-12-13 08:58] VITALS: BMI 23.9
--- NOTE | 2024-12-13 08:58 | MHC.OFFVIS ---
Vital Signs 12/13/24 08:58 Height 5 ft 10 in Weight 166 lb 5.985 oz BMI 23.9 Intake Visit Reasons: Follicular cyst of the skin, R toe Intake Note: This patient presents for an assessment for Follicular cyst of the skin of the right toe. Pt c/o; cyst bursts but is recurrent, right toe. Legal Contracts Specialist Required: No Accompanied by: Child Allergies No Known Allergies Allergy (Verified 12/13/24 09:03) Medication List - Last Reconciled 12/13/24 by Elias Coombs MD fluticasone propionate 50 mcg/actuation (Flonase Allergy Relief) 1 spray intranasal Q12H 30 days HPI HPI Follicular cyst of the skin, R toe: Details: [age] year old female referred for a skin ?cyst? on the right toe. She has this small lesion on the dorsum of the 3rd toe on the right he has had for a couple of years. She says that this has been bothering her and wants this removed. She denies any discharge from the area. [facility] Medical History Lesion of toe Epidermal inclusion cyst Surgical History History of excision of epidermal inclusion cyst (~03/24/23) Family History Father Melanoma Mother No problems noted. 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 Cognitive needs: No Hearing needs: No Vision needs: No Review of Systems Const Denies chills and Denies fever(s) Card Denies chest pain, Denies dyspnea and Denies dyspnea on exertion Resp Denies cough, Denies dyspnea and Denies dyspnea on exertion GI Denies hematochezia and Denies change in bowel habits Denies hematuria Musc Denies back pain and Denies limited range of motion Neuro Denies focal weakness and Denies convulsions Psych Denies depression and Denies mood swings Physical Exam Const General: comfortable and no acute distress Orientation/consciousness: patient oriented x3 Neck Neck: Yes no lymphadenopathy Resp Auscultation: clear to auscultation bilaterally Cardio Rhythm: regular rhythm GI Palpation (GI): Soft to palpation, nontender and no guarding Neuro General: patient oriented x3 Extrem Other: Third toe dorsal aspect of the distal phalanx on the right is note of a slightly elevated hyperkeratotic skin lesion about 6 mm in dimension, well-defined borders Office Procedures Excision Details: She was in reclining position. The area of the lesion on the 3rd toe of the distal phalanx dorsally on the right was prepped and draped. Lidocaine 1% was used for local anesthesia. I made an elliptical incision of the skin around this lesion with a blade 15. And this was carried down through the full-thickness of the skin and subcutaneous fat to excise this entire lesion. This was sent as specimen. The lesion was about 6 mm in widest dimension. The incision was closed with full-thickness nylon 3-0 simple sutures. Dressings were applied. She tolerated procedure well. There was minimal blood loss. 04889-slomp/arms/legs 0.6-1cm Procedure code (CPT) selection complete Assessment & Plan Assessment & Plan (1) Lesion of toe: Code(s): L98.9 - Disorder of the skin and subcutaneous tissue, unspecified Category: Medical Plan She has this toe lesion as described above on the 3rd toe on the right. I explained the technique of excision under local anesthesia. I reviewed the risks including but not limited to bleeding and infections, as well as the benefits and alternatives. She had wanted to proceed Excision was therefore done in the office under local anesthesia. She tolerated procedure well. She was given wound care instructions. I will see her in the office in 2 weeks to remove the sutures. Coding Level of Care Code Est Pt Level 3 (34086) Diagnoses Lesion of toe L98.9 CPT Codes Trunk/Arms/Legs - CPT: 81060-cnwkd/arms/legs 0.6-1cm ([id number])
== END 2024-12-13 09:22 | disposition home or self-care (01) ==
LOC: HO.HGS 08:58
PROVIDERS: PCP Family Medicine; Visit Provider Surgery
DX: L98.9 Disorder of the skin and subcutaneous tissue, unspecified (principal)
CPT/HCPCS: 11421; 99213

== ENCOUNTER 2024-12-13 08:57 | Outpatient (REF) | payer OTHER, SELFPAY | END 2024-12-13 08:58 | disposition home or self-care (01) | LOC: HO.LNP 08:57 | PROVIDERS: PCP Family Medicine; Visit Provider Surgery | DX: L98.9 Disorder of the skin and subcutaneous tissue, unspecified (principal) | CPT/HCPCS: 11421; 88304; 88342; 99212 ==

== ENCOUNTER 2024-12-27 09:31 | Outpatient (AMB) | payer OTHER, SELFPAY ==
--- NOTE | 2024-12-27 09:41 | A.OFFVIS_ITS ---
Vital Signs 12/27/24 09:44 Height 5 ft 10 in Weight 166 lb 5.985 oz BMI 23.9 Intake Visit Reasons: stitch removal Follicular cyst of the skin, R toe Intake Note: Patient presents for suture removal status post excision lesion of toe, right foot. (12/13/2024) Pt c/o; no complaints. Assistant Manager Bilingual Required: No Accompanied by: Self / Same As Patient Allergies No Known Allergies Allergy (Verified 12/27/24 09:44) HPI HPI stitch removal Follicular cyst of the skin, R toe: Details: She underwent excision of a cyst from the 3rd toe on the right under local anesthesia last 12/14/2024. She denies any complaints currently and is here for removal of sutures. [facility] Medical History Lesion of toe Epidermal inclusion cyst Surgical History History of surgical removal of skin lesion (~12/13/24) History of excision of epidermal inclusion cyst (~03/24/23) Family History Father Melanoma Mother No problems noted. Brother In good health Brother In good health Son In good health Daughter In good health Family/Other Alcoholism Depression Social History Housing: House Patient Tobacco Use Status: Never used Tobacco e-Cigarette/Vaping Use: Never Used service: No Current occupational status: employed Current occupation: [employer] Cognitive needs: No Hearing needs: No Vision needs: No Review of Systems Const Denies chills and Denies fever(s) Physical Exam Const General: comfortable and no acute distress Extrem Other: Excision site on the 3rd toe on the right is well healed, sutures intact, not infected Assessment & Plan Assessment & Plan (1) Lesion of toe: Code(s): L98.9 - Disorder of the skin and subcutaneous tissue, unspecified Category: Medical Plan: Status post excision. Her incision is well healed. I removed her sutures. Her path report shows a digital mucous cyst. She can follow up on a p.r.n. basis. Coding Level of Care Code Global (80925) Diagnoses Lesion of toe L98.9
[2024-12-27 09:44] VITALS: BMI 23.9
== END 2024-12-27 09:47 | disposition home or self-care (01) ==
LOC: HO.HGS 09:31
PROVIDERS: PCP Family Medicine; Visit Provider Surgery
DX: L98.9 Disorder of the skin and subcutaneous tissue, unspecified (principal)
CPT/HCPCS: 99024

== ENCOUNTER → 2024-12-27 09:31 | Outpatient (BNVA) | payer OTHER, SELFPAY | PROVIDERS: PCP Family Medicine; Visit Provider Surgery | DX: Z48.02 Encounter for removal of sutures (principal); L98.9 Disorder of the skin and subcutaneous tissue, unspecified | CPT/HCPCS: 99212 ==